=== PATIENT | female | born 1940 | race Caucasian/White ===

== ENCOUNTER → 2017-01-07 | Outpatient (CLI) | payer MEDICARE ==
[~2017-01-07] MED LIST: ASCO500T12 PO; CEFD300C37 PO; DABI150C PO; DOXY100C2 PO; HYDR-3138 PO; LISI-167 PO; LOSA1TAB18 PO; METO25TA35 PO; METO50TA82 PO; OMEG1CAP24 PO; OMEP40CA6 PO; SIMV20TA PO
== END | disposition home or self-care (01) ==
LOC: RAD 16:58
PROVIDERS: ATTEND Nurse Practitioner Family
DX: S16.1XXA Strain of muscle, fascia and tendon at neck level, initial encounter (principal); M47.892 Other spondylosis, cervical region; M48.02 Spinal stenosis, cervical region; X58.XXXA Exposure to other specified factors, initial encounter; Y93.89 Activity, other specified; Y92.89 Other specified places as the place of occurrence of the external cause; Y99.8 Other external cause status
CPT/HCPCS: 72050

== ENCOUNTER → 2017-03-27 | Outpatient (CLI) | payer MEDICARE | END | disposition home or self-care (01) | LOC: CFH 07:45 | PROVIDERS: ATTEND Licensed Practical Nurse | DX: Z12.31 Encounter for screening mammogram for malignant neoplasm of breast (principal); M85.88 Other specified disorders of bone density and structure, other site; N95.8 Other specified menopausal and perimenopausal disorders; Z80.3 Family history of malignant neoplasm of breast | CPT/HCPCS: 77080; G0202 ==

== ENCOUNTER 2020-05-01 06:52 | Outpatient (CLI) | payer MEDICARE ==
[~2020-05-01 06:52] MED LIST changes: -ASCO500T12 PO; +ASCO500T93 PO; -HYDR-3138 PO; +HYDR-3237 PO; -LOSA1TAB18 PO; +LOSA1TAB25 PO; +OMEP40CA42 PO; -OMEP40CA6 PO
== END 2020-05-01 23:59 | disposition home or self-care (01) ==
LOC: CFH 06:52
PROVIDERS: ATTEND Nurse Practitioner Family
DX: I34.0 Nonrheumatic mitral (valve) insufficiency (principal); R60.0 Localized edema
CPT/HCPCS: 93306